=== PATIENT | female | born 1995 | race Caucasian/White ===

== ENCOUNTER 2019-06-06 16:34 | Inpatient (IN) | payer OTHER ==
[2019-06-06] MEDS ORDERED: DEXTROSE 5%-0.45% NACL 1,000 ML IV (16:47)
[2019-06-06] MEDS ORDERED: NACL 0.9% 3 ML SYG IV (17:00)
[2019-06-06] MEDS ORDERED: morphine 2 MG INJ IV (17:00)
[2019-06-06] MEDS ORDERED: PIPER-TAZO 3.375 GM IV (PMX) 100 ML IVPB (17:00)
[2019-06-06] MEDS: D5W-0.45 NACL + KCL 20 MEQ 1,000 ML IV (17:51)
[2019-06-06] MEDS: PIPER-TAZO 3.375 GM IV (PMX) 100 ML IVPB (17:51)
[2019-06-06] MEDS: morphine 2 MG INJ IV (17:52)
[2019-06-06] MEDS: ACETAMINOPHEN 325 MG TAB PO (20:58)
[2019-06-07] MEDS: PIPER-TAZO 3.375 GM IV (PMX) 100 ML IVPB ×5 (00:05→23:41)
[2019-06-07] MEDS: D5W-0.45 NACL + KCL 20 MEQ 1,000 ML IV ×2 (03:50→08:03)
[2019-06-07 05:02] LABS: ADD MAN DIFF? NO
[2019-06-07 05:05] LABS: BASOPHIL # 0.1 10^3/ul (0.0-0.1); BASOPHILS % 0.3 % (0.0-2.0); EOSINOPHILS # 0.1 10^3/ul (0.0-0.5); EOSINOPHILS % 0.4 % (0.0-7.0); HEMATOCRIT 33.5 % (37.0-47.0); HEMOGLOBIN 11.1 g/dl (12.0-16.0); LYMPHOCYTES # 2.5 10^3/ul (0.8-2.9); LYMPHOCYTES % 14.9 % (15.0-51.0); MEAN CORPUSCULAR HEMOGLOBIN 29.7 pg (29.0-33.0); MEAN CORPUSCULAR HGB CONC 33.1 g/dl (32.0-37.0); MEAN CORPUSCULAR VOLUME 89.6 fl (82.0-101.0); MEAN PLATELET VOLUME 9.7 fl (7.4-10.4); NEUTROPHIL # 12.8 10^3/ul (1.6-7.5); NEUTROPHILS % 77.9 % (39.0-77.0); PLATELET COUNT 250 10^3/UL (140-415); RED BLOOD COUNT 3.74 10^6/ul (4.20-5.40); RED CELL DISTRIBUTION WIDTH 12.3 % (11.5-14.5)
[2019-06-07 05:05] LABS: WHITE BLOOD COUNT 16.5 10^3/ul (4.8-10.8)
[2019-06-07 05:30] LABS: PARTIAL THROMBOPLASTIN TIME 32.6 Sec (23.0-35.0)
[2019-06-07 05:32] LABS: ALANINE AMINOTRANSFERASE 17 IU/L (13-69); ALBUMIN 3.6 g/dl (3.3-4.9); ALBUMIN/GLOBULIN RATIO 1.24; ALKALINE PHOSPHATASE 68 IU/L (42-121); ANION GAP 7 (5-13); ASPARTATE AMINO TRANSFERASE 11 IU/L (15-46); BILIRUBIN,INDIRECT 0.9 mg/dl (0-1.1); BILIRUBIN,TOTAL 0.9 mg/dl (0.2-1.3); BLOOD UREA NITROGEN 2 mg/dl (7-20); CALCIUM 8.6 mg/dl (8.4-10.2); CARBON DIOXIDE 27 mmol/L (21-31); CHLORIDE 106 mmol/L (97-110); Estimated GFR > 60 mL/min (>60); GLUCOSE 120 mg/dl (70-220); SODIUM 140 mmol/L (135-144); TOTAL PROTEIN 6.5 g/dl (6.1-8.1)
[2019-06-07] MEDS ORDERED: MIDAZOLAM 1 MG/ML 2 ML INJ (10:02)
[2019-06-07] MEDS ORDERED: HYDROmorphONE 2 MG/ML SYG (10:02)
[2019-06-07] MEDS ORDERED: LIDOCAINE 4% (MPF) 5 ML INJ (10:06)
[2019-06-07] MEDS ORDERED: ROCURONIUM 50 MG INJ (10:26)
[2019-06-07] MEDS ORDERED: METOCLOPRAMIDE 10 MG INJ (10:26)
[2019-06-07] MEDS ORDERED: FAMOTIDINE 20 MG INJ (10:26)
[2019-06-07] MEDS ORDERED: LIDOCAINE 2% (SDV) 5 ML INJ (10:26)
[2019-06-07] MEDS ORDERED: PROPOFOL 20 ML (10:26)
[2019-06-07] MEDS ORDERED: DEXAMETHASONE 4 MG/ML 5 ML INJ (10:26)
[2019-06-07] MEDS ORDERED: ONDANSETRON 4 MG INJ (10:27)
[2019-06-07] MEDS: POLYMYXIN/BACITRACIN 1L IRRIG (10:38)
[2019-06-07] MEDS ORDERED: NEOSTIGMINE 3 MG/3 ML SYRINGE (10:58)
[2019-06-07] MEDS ORDERED: GLYCOPYRROLATE 0.4 MG INJ (10:58)
[2019-06-07] MEDS ORDERED: HYDROmorphONE 1 MG/5 ML IV SYRINGE IV ×2 (11:00)
[2019-06-07] MEDS ORDERED: MEPERIDINE 25 MG INJ IV (11:00)
[2019-06-07] MEDS ORDERED: ONDANSETRON 4 MG INJ IV (11:00)
[2019-06-07] MEDS ORDERED: LABETALOL HCL 20MG INJ IV (11:00)
[2019-06-07] MEDS ORDERED: OXYCODONE/ACETAMINOPHEN (5/325) TAB PO ×2 (11:00)
[2019-06-07] MEDS: HYDROmorphONE 1 MG/5 ML IV SYRINGE IV (12:08)
[2019-06-07] MEDS: ACETAMINOPHEN 325 MG TAB PO (17:26)
[2019-06-07] MEDS: morphine 2 MG INJ IV ×2 (19:51→22:07)
[2019-06-08] MEDS: PIPER-TAZO 3.375 GM IV (PMX) 100 ML IVPB ×3 (05:14→17:07)
[2019-06-08] MEDS: morphine 2 MG INJ IV (11:00)
[2019-06-08] MEDS: ACETAMINOPHEN 325 MG TAB PO (11:03)
[2019-06-08 12:00] LABS: ADD MAN DIFF? NO
[2019-06-08 12:18] LABS: BASOPHILS % 0.2 % (0.0-2.0); HEMATOCRIT 36.5 % (37.0-47.0); HEMOGLOBIN 11.9 g/dl (12.0-16.0); LYMPHOCYTES # 2.7 10^3/ul (0.8-2.9); LYMPHOCYTES % 16.1 % (15.0-51.0); MEAN CORPUSCULAR HEMOGLOBIN 29.7 pg (29.0-33.0); MEAN CORPUSCULAR HGB CONC 32.6 g/dl (32.0-37.0); MEAN PLATELET VOLUME 9.8 fl (7.4-10.4); MONOCYTE # 1.1 10^3/ul (0.3-0.9); MONOCYTES % 6.6 % (0.0-11.0); NEUTROPHIL # 12.8 10^3/ul (1.6-7.5); NEUTROPHILS % 76.5 % (39.0-77.0); PLATELET COUNT 295 10^3/UL (140-415); RED BLOOD COUNT 4.01 10^6/ul (4.20-5.40); RED CELL DISTRIBUTION WIDTH 12.2 % (11.5-14.5)
[2019-06-08 12:18] LABS: WHITE BLOOD COUNT 16.7 10^3/ul (4.8-10.8)
[2019-06-08] MEDS ORDERED: POLYETHYLENE GLYCOL 17 GM PACKET (18:26)
[2019-06-08] MEDS: POLYETHYLENE GLYCOL 17 GM PACKET GTB (18:28)
[2019-06-08] MEDS: CEPASTAT LOZENGE MT (20:58)
[2019-06-09] MEDS: PIPER-TAZO 3.375 GM IV (PMX) 100 ML IVPB ×4 (00:21→17:42)
[2019-06-09 06:07] LABS: ADD MAN DIFF? NO
[2019-06-09 06:08] LABS: BASOPHILS % 0.3 % (0.0-2.0); EOSINOPHILS # 0.1 10^3/ul (0.0-0.5); EOSINOPHILS % 0.5 % (0.0-7.0); HEMATOCRIT 34.9 % (37.0-47.0); HEMOGLOBIN 11.1 g/dl (12.0-16.0); LYMPHOCYTES # 3.9 10^3/ul (0.8-2.9); LYMPHOCYTES % 37.9 % (15.0-51.0); MEAN CORPUSCULAR HEMOGLOBIN 29.5 pg (29.0-33.0); MEAN CORPUSCULAR HGB CONC 31.8 g/dl (32.0-37.0); MEAN CORPUSCULAR VOLUME 92.8 fl (82.0-101.0); MONOCYTE # 0.5 10^3/ul (0.3-0.9); MONOCYTES % 5.2 % (0.0-11.0); NEUTROPHIL # 5.8 10^3/ul (1.6-7.5); NEUTROPHILS % 55.7 % (39.0-77.0); PLATELET COUNT 282 10^3/UL (140-415); RED BLOOD COUNT 3.76 10^6/ul (4.20-5.40); RED CELL DISTRIBUTION WIDTH 12.5 % (11.5-14.5)
[2019-06-09 06:08] LABS: WHITE BLOOD COUNT 10.4 10^3/ul (4.8-10.8)
[2019-06-09] MEDS: POLYETHYLENE GLYCOL 17 GM PACKET GTB (08:22)
== END 2019-06-09 19:30 | disposition home or self-care (01) | DRG 340 ==
LOC: 5EC 16:34
PROC: 0DTJ0ZZ Resection of Appendix, Open Approach (ICD-10-PCS; principal; 2019-06-07 10:07)
DX: K35.32 Acute appendicitis with perforation, localized peritonitis, and gangrene, without abscess (principal)
CPT/HCPCS: 80053; 83036; 85025; 85730; 88304